=== PATIENT | male | born 1985 | race Caucasian/White ===

== ENCOUNTER 2022-04-20 13:39 | Emergency (ER) | payer MEDICAID ==
[2022-04-20] MEDS ORDERED: Lidocaine 1% 5 ML VIAL ONE (14:10)
[2022-04-20] MEDS ORDERED: LORazepam 1 MG Tab ONE (14:10)
== END 2022-04-20 15:22 | disposition home or self-care (01) ==
LOC: JP.ED 13:39
DX: S61.412A Laceration without foreign body of left hand, initial encounter (principal); W27.0XXA Contact with workbench tool, initial encounter
CPT/HCPCS: 12002; 99282; A9270

== ENCOUNTER 2023-10-31 11:49 | Emergency (ER) | payer MEDICAID ==
[2023-10-31] MEDS ORDERED: Naloxone 0.4 MG/ML SDV IVPUSH PRN (13:02)
[2023-10-31 13:15] LABS: BASOPHILS ABSOLUTE AUTO 0.03 K/uL (0.00-0.10); BASOPHILS PERCENT AUTO 0.5 % (0.1-1.3); EOSINOPHILS ABSOLUTE AUTO 0.52 K/uL (0.00-0.40); EOSINOPHILS PERCENT AUTO 7.8 % (0.0-5.4); HEMATOCRIT 43.3 % (38.4-49.7); HEMOGLOBIN 14.7 g/dL (12.9-16.9); IMMATURE GRAN PERCENT AUTO 0.2 % (0.0-0.7); LYMPHOCYTES ABSOLUTE AUTO 2.01 K/uL (0.8-3.3); LYMPHOCYTES PERCENT AUTO 30.3 % (11.4-47.7); MEAN CORPUSCULAR HEMOGLOBIN 30.2 pg (31.6-35.5); MEAN CORPUSCULAR HGB CONC 33.9 g/dL (31.6-35.5); MEAN CORPUSCULAR VOLUME 89.1 fL (81.4-99.0); MONOCYTES PERCENT AUTO 7.5 % (3.3-12.6); NEUTROPHILS ABSOLUTE AUTO 3.57 K/uL (1.0-7.6); NEUTROPHILS PERCENT AUTO 53.7 % (40.0-78.1); PLATELET COUNT,PLT 203 K/uL (130-375); RED BLOOD CELL COUNT 4.86 M/uL (4.14-5.76); WHITE BLOOD CELL COUNT,WBC 6.6 K/uL (3.2-11.0)
[2023-10-31] MEDS: Sodium Chloride 0.9% 1,000 ML IV SCH (13:15)
[2023-10-31] MEDS: Ondansetron 4 MG/2 ML SDV IVPUSH ONE (13:16)
[2023-10-31] MEDS: HYDROmorphone 0.5 MG/0.5 ML Syringe IVPUSH ONE (13:21)
[2023-10-31 13:32] LABS: IMMATURE GRAN ABSOLUTE AUTO 0.01 K/uL (0.00-0.23); PROTHROMBIN TIME 10.6 sec (9.2-10.6)
[2023-10-31 13:36] LABS: A/G RATIO 1.2 (1.2-2.2); ALANINE AMINOTRANSFERASE,ALT 23 U/L (12-78); ALBUMIN 3.7 g/dL (3.4-5.0); ALKALINE PHOSPHATASE 78 U/L (46-116); ANION GAP 5.3 mmol/L (5.0-14.0); ASPARTATE AMNIOTRANSFERASE,AST 14 U/L (15-37); BILIRUBIN TOTAL 0.3 mg/dL (0.2-1.0); BLOOD UREA NITROGEN,BUN 9 mg/dL (7-18); CALCIUM 9.4 mg/dL (8.5-10.1); CARBON DIOXIDE,CO2 32 mmol/L (21-32); CHLORIDE,CL 104 mmol/L (100-108); EST CRCL DRUG DOSING (CG) 108.86 mL/min; ESTIMATED GFR 98 mL/min (>60); GLUCOSE RANDOM 83 mg/dL (74-106); POTASSIUM,K 4.3 mmol/L (3.6-5.2); PROTEIN TOTAL,TP 6.8 g/dL (6.4-8.2); SODIUM,NA 141 mmol/L (140-148)
[2023-10-31] MEDS: Sodium Chloride 0.9% 10 ML Syringe FLUSH ONE (13:59)
[2023-10-31] MEDS: Iopamidol 612 MG/ML 100 ML Bottle IV SCH (13:59)
[2023-10-31] MEDS: Sodium Chloride 0.9% 80 ML IV SCH (13:59)
[2023-10-31] MEDS: Pantoprazole 80 MG in Sodium Chloride 0.9% 100 ML IV ONE (14:14)
[2023-10-31 14:37] LABS: CORONAVIRUS COVID-19 NAA NEGATIVE (NEGATIVE); INFLUENZA A NAA NEGATIVE (NEGATIVE); INFLUENZA B NAA NEGATIVE (NEGATIVE); RESPIRATORY SYNCYTIAL VIR NAA NEGATIVE (NEGATIVE)
== END 2023-10-31 14:56 | disposition home or self-care (01) ==
LOC: JP.ED 11:49
DX: K29.70 Gastritis, unspecified, without bleeding (principal); J45.909 Unspecified asthma, uncomplicated; F17.210 Nicotine dependence, cigarettes, uncomplicated; Z88.0 Allergy status to penicillin; Z79.899 Other long term (current) drug therapy
CPT/HCPCS: 0241U; 36415; 74177; 80053; 80307; 83605; 83690; 85025; 85610; 96361; 96365; 96375; 99284; C9113; J1170; J2405; J3490; J7030; Q9967; 99283

== ENCOUNTER 2023-12-27 07:55 | Day surgery (SDC) | payer MEDICAID ==
[2023-12-27] MEDS: Sodium Chloride 0.9% 1,000 ML IV SCH (08:43)
[2023-12-27] MEDS ORDERED: fentaNYL 250 MCG/5 ML SDV ONE ×2 (08:44→10:57)
[2023-12-27] MEDS: Indocyanine Green 25 MG SDV IV ONE (08:44)
[2023-12-27] MEDS ORDERED: Propofol 200 MG/20 ML SDV ONE (08:45)
[2023-12-27] MEDS ORDERED: Neostigmine Methylsulfate 10 MG/10 ML MDV ONE (08:45)
[2023-12-27] MEDS ORDERED: Succinylcholine 200 MG/10 ML MDV ONE (08:45)
[2023-12-27] MEDS ORDERED: Rocuronium 50 MG/5 ML Vial ONE (08:45)
[2023-12-27] MEDS ORDERED: Glycopyrrolate 0.2 MG/ML 5 ML MDV ONE (08:45)
[2023-12-27] MEDS ORDERED: Dexamethasone 4 MG/ML SDV ONE (08:45)
[2023-12-27] MEDS ORDERED: Ondansetron 4 MG/2 ML SDV ONE (08:45)
[2023-12-27 08:48] LABS: HEMOGLOBIN 14.4 g/dL (12.9-16.9); MEAN CORPUSCULAR HEMOGLOBIN 30.3 pg (31.6-35.5); MEAN CORPUSCULAR HGB CONC 35.1 g/dL (31.6-35.5); MEAN CORPUSCULAR VOLUME 86.3 fL (81.4-99.0); RED BLOOD CELL COUNT 4.75 M/uL (4.14-5.76); WHITE BLOOD CELL COUNT,WBC 4.8 K/uL (3.2-11.0)
[2023-12-27 09:08] LABS: A/G RATIO 1.3 (1.2-2.2); ALANINE AMINOTRANSFERASE,ALT 22 U/L (12-78); ALBUMIN 3.7 g/dL (3.4-5.0); ALKALINE PHOSPHATASE 64 U/L (46-116); ANION GAP 8.6 mmol/L (5.0-14.0); ASPARTATE AMNIOTRANSFERASE,AST 15 U/L (15-37); BILIRUBIN TOTAL 0.6 mg/dL (0.2-1.0); BLOOD UREA NITROGEN,BUN 11 mg/dL (7-18); CALCIUM 8.7 mg/dL (8.5-10.1); CARBON DIOXIDE,CO2 26 mmol/L (21-32); CHLORIDE,CL 105 mmol/L (100-108); CREATININE 0.9 mg/dL (0.8-1.3); EST CRCL DRUG DOSING (CG) 120.95 mL/min; ESTIMATED GFR 111 mL/min (>60); GLUCOSE RANDOM 98 mg/dL (74-106); PROTEIN TOTAL,TP 6.6 g/dL (6.4-8.2); SODIUM,NA 140 mmol/L (140-148)
[2023-12-27] MEDS: Clindamycin in 0.9 % Sod Chlor 600 MG in Premix Bag 1 BAG IV ONE (10:00)
[2023-12-27] MEDS: metroNIDAZOLE/Normal Saline 500 MG in Premix Bag 1 BAG IV ONE (10:20)
[2023-12-27] MEDS: Bupivacaine 0.5% 50 ML MDV ONE (10:51)
[2023-12-27] MEDS: Lidocaine 1% with EPINEPHrine 1:100,000 50 ML MDV ONE (10:52)
[2023-12-27] MEDS: Ropivacaine 44 ML, dexAMETHasone 8 MG, EPINEPHrine 0.4 MG, Sodium Chloride 0.9% 33.6 ML NERVRT SCH (10:58)
[2023-12-27] MEDS: Ondansetron 4 MG/2 ML SDV IVPUSH PRN (12:24)
[2023-12-27] MEDS: Acetaminophen/HYDROcodone 325-5 MG Tab PO PRN (13:53)
== END 2023-12-27 14:40 | disposition home or self-care (01) ==
LOC: JP.SDS 07:55
PROVIDERS: ATTEND Surgery
DX: K81.1 Chronic cholecystitis (principal); F17.210 Nicotine dependence, cigarettes, uncomplicated; J45.909 Unspecified asthma, uncomplicated; K21.9 Gastro-esophageal reflux disease without esophagitis; Z88.0 Allergy status to penicillin
CPT/HCPCS: 36415; 47562; 80053; 85027; A9270; J0171; J0330; J0665; J1100; J1836; J2405; J2704; J2710; J2795; J3010; J3490; J7030; 00790-QZ